=== PATIENT | male | born 1960 | race Caucasian/White ===

== ENCOUNTER 2016-10-27 23:45 | Emergency (ER) | payer OTHER ==
[~2016-10-27] VITALS: Ht 185.4 cm; Wt 100.0 kg
[~2016-10-27 23:45] MED LIST: ATRV10T PO; AZEL205. NS; BEN25 PO; CICL6.1H5 NS; HYDR1TAB91 PO; LOTE3.5O OP; LUN2 PO; METH4TAB PO; ROB500 PO; SIN10 PO; VENL150C4 PO; [UNRECOGNIZED DRUG - CODE] TP
[2016-10-27 23:54] VITALS: BP 149/100; PULSE 92; RESP 18; O2SAT 97
--- NOTE | 2016-10-28 00:38 | ED.REPORT ---
HPI-Hand Prob/Inj Date of Service Oct 28, 2016 ED Provider: Manohar Roach MD The pt is a 56 y/o male presenting to the ED due to a finger laceration on the L 2nd finger. The pt was using a zucchini spiraler when he injured himself. He also reports the wound bleeding for 5 hours. Nursing Notes Stated Complaint: FINGER LACERATION L HAND Chief Complaint: L index finger laceration Nursing Notes Reviewed: Yes Allergies: Coded Allergies: No Known Drug Allergies (Verified Allergy, 11/27/12) Scheduled Atorvastatin-Expunged Drug, Do Not Renew! (Atorvastatin-Expunged Drug, Do Not Renew!) 10 Mg Tablet 10 MG PO DAILY For Cholesterol Management. Azelastine Hcl (Astepro) 205.5 Mcg/0.137 Ml Dale.pump 1 SPRAY NS BID SPRAY INTO EACH NOSTRIL Ciclesonide (Zetonna) 6.1 Gm Hfa.aer.ad 2 SPRAYS NS DAILY SPRAY INTO EACH NOSTRIL Eszopiclone-Expunged Drug, Do Not Renew! (Lunesta-Expunged Drug, Do Not Renew!) 2 Mg Tablet 2 MG PO HS FOR INSOMNIA LOTEPREDNOL ETAB-Expunged Drug, Do Not Renew! (LOTEMAX-Expunged Drug, Do Not Renew!) 3.5 Gm Oint...g. 3.51 GTT OP DAILY Methocarbamol-Expunged Drug, Do Not Renew! (Robaxin-Expunged Drug, Do Not Renew! ) 500 Mg Tablet 500 MG PO Q8 MethylprednisoLONE-Expunged Drug, Do Not Alexandr (Medrol Dosepak-Expunged Drug, Do Not Renew!) 21 Tab Pkg 4 MG PO UD TAKE DIRECTED ON PACKAGE; COMPLETE ENTIRE COURSE OF THERAPY. Montelukast-Expunged Drug, Do Not Renew! (Singulair-Expunged Drug, Do Not Renew! ) 10 Mg Tablet 10 MG PO QPM For Allergy Management Permethrin (Permethrin) 118 Ml Liquid 118 ML TP ONCE USE PER PHYSICIAN INSTRUCTIONS Venlafaxine-Expunged Drug, Do Not Renew! (Effexor XR-Expunged Drug, Do Not Renew !) 150 Mg Cap.er.24h 150 MG PO DAILY FOR MOOD Scheduled PRN Hydrocod/APAP-Expunged, Do Not Renew! (Hydrocod/APAP-Expunged, Do Not Renew!) 1 Each Tablet 1 TAB PO Q6 PRN PRN For mild-moderate pain. diphenhydrAMINE-Expunged Drug, Do Not Renew! (diphenhydrAMINE-Expunged Drug, Do Not Renew!) 25 Mg Capsule 25 MG PO HS PRN PRN IF NEEDED FOR SLEEP General Time Seen by Provider: 00:30 Chief Complaint Other (L index finger laceration) Hx Obtained From: Patient Arrived By: Walk-in Onset Occurred: 5 - 8 hours ago Symptom Duration: Since onset Recent Healthcare: No recent doctor visit, No recent hospitalization Similar Sx Previous: No Past Medical History Past Medical History None reported Past Surgical History None reported Smoking History Unknown if Ever Smoker Social History None reported Ambulatory Status Independent Review of Systems Finger laceration to L index finger; Complete sys rev & neg: except as marked. Physical Exam Initial Vital Signs Vital Signs (First) Date Time Temp Pulse Resp B/P Pulse Ox O2 Delivery O2 Flow Rate FiO2 10/27/16 23:54 37.0 92 18 149/100 97 Room Air Initial VS: Reviewed, Vital signs abnormal General/Constitutional: Well-developed, Well-nourished Head / Eyes: Atraumatic, Normocephalic, PERRL ENT: Mucous membranes moist, Conjunctiva normal, No scleral icterus Neck: Supple, Non-tender, Full range of motion Respiratory: Breath sounds normal, Clear to auscultation, No respiratory distress Cardiovascular: Regular rate & rhythm, Heart sounds normal, Intact distal pulses Neurologic: Alert, Oriented, Nonfocal Psychiatric: Mood/affect normal, Behavior normal, Normal thought content Wrist / Hand: No deformity Finger Exam : Finger Exam: Positive: Finger name... (L index) 1.5 x 1 cm skin avulsion Procedures Laceration Management Laceration Management: 1.5 x 1 cm skin avulsion that was cleansed and anesthetized 3 simples stitches were used to narrow the gap to about .5 cm wide Time: 00:56 Procedure Performed by: ED physician Consent / Setup / Site Prep: Informed consent provided, Consent from patient , Time-out performed, Hand hygiene observed, Stand sterile technique Location of Wound: L index finger; Local Anesthesia: Lidocaine w epi 1% Digit Involved: Index finger left Wound Preparation: Normal saline Debridement: None Irrigation: Copious Repair Skin: ___ O (5), Nylon # Sutures - Skin: 3 Suture Technique: Simple Post-Procedure / Complications: Dressing applied, No complications, Condition improved, Tolerated procedure well, Patient stable Re-Eval/Medical Decision Med Decision/Clinical Course 56-year-old male with a skin avulsion of his fingertip. This was cleansed and lidocaine with epi was used to numb it to get vasoconstriction because with stop bleeding. The avulsion Was narrowed with 3 simple consists of 5-0 nylon. Patient tolerated the procedure well. I did not get full closure but definitely decreased the open area of the wound. Source of Hx: Old records Re-Evaluation/Progress : Time of Eval: 00:57 Re-Evaluation/Progress Note: Performed laceration repair. Counseled Regarding: Diagnosis, Need for follow-up, When/why to return to ED Discharge & Departure Primary Impression: Laceration of left index finger Disposition: Home Discharge Condition All VS Reviewed: Yes Condition: Stable Patient Instructions: Finger Laceration (ED) Additional Instructions: Fingertip lacerations that involve an avulsion (the actual removal of skin) bleed a lot and are hard to repair. Essentially, they have to heal from below. I have narrowed the gap to decrease the healing time. Daily dressing change. Keep it clean and dry. Suture removal in 10-14 days. Recheck as needed if there is any evidence of infection. Referrals: [facility]OPCP (PCP) Bren Salguero MD Scribe Attestation Portions of this note were transcribed by Nas Mclain. I, Dr. Roach personally performed the history, physical exam and medical decision-making; I reviewed and confirmed the accuracy of the information in the transcribed note. copies to: Bren Salguero MD, Manohar Ayala MD Oct 28, 2016 00:38 Nas Mclain Oct 28, 2016 01:01
== END 2016-10-28 01:30 | disposition home or self-care (01) ==
LOC: SED 23:45
DX: S61.211A Laceration without foreign body of left index finger without damage to nail, initial encounter (principal); W26.8XXA Contact with other sharp object(s), not elsewhere classified, initial encounter; Y93.89 Activity, other specified; Y92.89 Other specified places as the place of occurrence of the external cause; Y99.8 Other external cause status